=== PATIENT | female | born 1955 | race African-American/Black ===

== ENCOUNTER 2018-04-03 11:28 | Emergency (ER) | payer SELFPAY ==
[~2018-04-03] VITALS: Ht 157.5 cm; Wt 94.7 kg
[2018-04-03] MEDS ORDERED: KETOROLAC 60MG/2ML VIAL IM ONE (14:30)
[2018-04-03] MEDS ORDERED: CYCLOBENZAPRINE 10MG TABLET PO ONE (14:30)
[2018-04-03 17:10] VITALS: BP 160/98
== END 2018-04-03 17:15 | disposition home or self-care (01) ==
LOC: ER 11:28
DX: M54.5 Low back pain (principal); G89.29 Other chronic pain; M79.605 Pain in left leg; M79.604 Pain in right leg
CPT/HCPCS: 96372; 99283; J1885